=== PATIENT | female | born 1990 | race Hispanic/Latino ===

== ENCOUNTER 2017-08-23 13:41 | Inpatient (IN) | payer OTHER ==
[2017-08-23 14:25] VITALS: BMI 35.7
[2017-08-23] MEDS ORDERED: Ondansetron HCl/PF 4 MG/2 ML Vial IVP PRN ×2 (15:10→17:29)
[2017-08-23] MEDS ORDERED: Promethazine HCl 25 MG/ML VIAL IM PRN ×2 (15:10→17:29)
[2017-08-23] MEDS ORDERED: Lidocaine 1% (PF) 30 ML VIAL SC PRN (15:29)
[2017-08-23] MEDS ORDERED: Ibuprofen 800 MG TAB PO PRN (15:29)
[2017-08-23] MEDS: Lactated Ringer's 1,000 ML IV SCH ×2 (15:33→16:05)
[2017-08-23 15:58] LABS: Hematocrit 32.6 % (36.0-47.0); White Blood Cell (WBC) Count 8.3 thou/uL (4.8-10.8)
[2017-08-23] MEDS ORDERED: Fentanyl 4 mcg/Marc 0.1% Cadd 100 ML ONE (16:11)
[2017-08-23] MEDS: Fentanyl 4mcg/Marcaine 0.1% Cassette 100 ML EPIDURAL SCH ×2 (17:10→22:52)
[2017-08-23] MEDS ORDERED: Eucerin (Mineral Oil/Petrolatum,White) 30 gm Jar TOP PRN (17:29)
[2017-08-23] MEDS ORDERED: diphenhydrAMINE HCl 50 MG/ML 1 ML VIAL IVP PRN (17:29)
[2017-08-23] MEDS ORDERED: Naloxone HCl 0.4 mg/ml Vial IVP PRN ×2 (17:29)
[2017-08-23] MEDS ORDERED: Lactated Ringer's 500 ML IV PRN (17:29)
[2017-08-23] MEDS ORDERED: ePHEDrine/0.9% NaCl/PF SYRINGE 50 mg/10 ml SLOW IVP PRN (17:29)
[2017-08-23] MEDS ORDERED: Communication Order-Pharmacy FS SCH (17:30)
--- NOTE | 2017-08-23 17:55 | PDOC.LDPN ---
Labor & Delivery Progress Note - Subjective Subjective: comfortable - Objective General: NAD, resting Dilation: 4 Effacement: 90% Station: -1 FHT: category 1, variability present [place] contractions every: 3-4 minutes Procedures: AROM AROM: clear fluid IUPC placed: yes - Assessment (1) Desires (vaginal after ) trial Code(s): O34.219 - MATERNAL CARE FOR UNSP TYPE SCAR FROM PREVIOUS DEL Current Visit: Yes Status: Acute Comment: @ 38.0 desires a TOLAC. Her last was at 31 weeks for severe pre-e with a low transverse incision on the uterus. Her initial check was 4/80/-1, she has only progressed to 4//-1 We ruptured her, which returned clear fluid, and placed an IUPC. Will start pitocin for augmentation Continue cervical checks She received an epidural for anaesthesia. Plan: labor augmentation (started pitocin for augmentation)
[2017-08-23] MEDS ORDERED: LR 500 ML/Oxytocin 10 units 500 ML IV SCH (18:00)
[2017-08-23] MEDS: Acetaminophen 325 MG TAB PO PRN (19:14)
--- NOTE | 2017-08-23 20:06 | PDOC.LDPN ---
Labor & Delivery Progress Note - Subjective Subjective: painful contractions - Objective Vital signs reviewed and normal: yes General: breathing through contractions Uterine fundus: non tender SVE: 6/100/0 FHT: category 1 [place] contractions every: 3-6 min Other exam findings: 300 MVUs IUPC placed: yes (replaced IUPC as previously placed one was coiled in vaginal vault) - Assessment (1) Active labor at term Code(s): [id number] - Current Visit: Yes Status: Acute (2) Desires (vaginal after ) trial Code(s): O34.219 - MATERNAL CARE FOR UNSP TYPE SCAR FROM PREVIOUS DEL Current Visit: Yes Status: Acute Comment: @ 38.0 in active labor who desires TOLAC. Her last was at 31 weeks for severe pre-e with a low transverse incision on the uterus. Her initial check was /-1 and was having regular contractions. MFM calc > 50% success Anesthesia- epidural (3) History of delivery Code(s): Z98.891 - HISTORY OF UTERINE SCAR FROM PREVIOUS SURGERY Current Visit : Yes Status: Acute (4) Gestational diabetes, diet controlled Code(s): O24.410 - GESTATIONAL DIABETES MELLITUS IN , DIET CONTROLLED Current Visit: Yes Status: Acute Qualifiers: Trimester: third trimester Qualified Code(s): O24.410 - Gestational diabetes mellitus in , diet controlled Comment: diet controlled. accucheck 88. Plan: continue plan of care -: After replacement of IUPC, will monitor ctx for adequate MVUs. If inadequate, will start pitocin for augmentation of labor.
--- NOTE | 2017-08-23 21:27 | HP ---
TODAY'S DATE: 08/23/2017 TIME: 1510 hours. This is a patient of the Clinic, who is here for suspected labor at term, with a history of a prior at 31 weeks. HISTORY OF PRESENT ILLNESS: In brief, this is a 26-year-old 2, para 1 with a history of a prior x1 with her first due to severe preeclampsia. That was at [facility]. That occurred at 31 weeks. She is followed the Clinic for this care. Dr. Gonzalez was the first physician to assess the patient on arrival and I have evaluated the patient as well. The patient's prior was with Dr. Fonseca on 2014. She presents now with contractions, but denies vaginal bleeding or leakage of fluid. PAST MEDICAL HISTORY: Otherwise, negative except for obesity. PAST SURGICAL HISTORY: Significant for x1. FAMILY HISTORY: Significant for father with hypertension and type 2 diabetes. /OB HISTORY: She is at 30 weeks by ultrasound performed 01/20/2017. ALLERGIES: None. SOCIAL HISTORY: Otherwise negative. REVIEW OF SYSTEMS: Complete review of systems was checked and is otherwise negative unless specified in the HPI. PHYSICAL EXAMINATION: VITAL SIGNS: Blood pressure is 122/87, heart rate 76, respirations are 18 and nonlabored. GENERAL: She is in no acute distress, but she does have some contraction discomfort. ABDOMEN: Soft and nontender. CERVIX: On cervical exam, her cervix is 4 cm dilated, 80% effaced, -1 station. Estimated weight is approximately 7 pounds. Child's presentation is vertex. Contractions are about every 5-8 minutes on tocodynamometer. MONITORING: heart tones are in the 140s with moderate variability and accelerations, the category is 1. ASSESSMENT: This is a 2, para 1, who is at 38 weeks with a prior C- section x1 that was done at [address] Fonseca for severe preeclampsia, she is now here with contractions and early labor at 4 cm. PLAN: 1. The operative note from the is not in the chart, but we have contacted the Clinic and we are waiting to confirm that there was a low transverse section and that she is cleared for trial of labor. 2. She has interdelivery interval of just over 24 months with her last delivery / being 05/23/2015. As the delivery interval is greater than 24 months , and as the patient desires trial of labor after , a trial of labor after can be allowed if the operative note confirms low transverse . 3. Informed consent on including risk of uterine rupture, failure, need for repeat , need for blood transfusion, as well as an option for elective repeat have all been reviewed with her. 4. Anesthesia preop. 5. Type and screen rather than bend and hold. 6. Charge nurse aware of possible trial of labor after if operating report confirms low transverse . ADDENDUM: The operative report has been received at 1519 hours. The operative note states a prior low transverse section was made. The incision was also closed with a double layer closure. This confirms our ability to allow a vaginal after section. I have provided informed consent to her in [place]...forms signed. ELISE
--- NOTE | 2017-08-23 23:22 | PDOC.LDPN ---
Labor & Delivery Progress Note - Subjective Subjective: comfortable, vaginal pressure - Objective Vital signs reviewed and normal: yes General: NAD, resting, breathing through contractions Uterine fundus: non tender Dilation: 9.5 Effacement: 100% Station: 0 FHT: category 1, variability present [place] contractions every: 2-3 AROM: clear fluid IUPC placed: yes - Assessment (1) Desires (vaginal after ) trial Code(s): O34.219 - MATERNAL CARE FOR UNSP TYPE SCAR FROM PREVIOUS DEL Current Visit: Yes Status: Acute Comment: @ 38.0 in active labor who desires TOLAC. Her last was at 31 weeks for severe pre-e with a low transverse incision on the uterus. Her most recent check 9.5/100/0 and was having regular contractions. Anesthesia- epidural continue current plan check again in 2 hours (2) Gestational diabetes, diet controlled Code(s): O24.410 - GESTATIONAL DIABETES MELLITUS IN , DIET CONTROLLED Current Visit: Yes Status: Acute Qualifiers: Trimester: third trimester Qualified Code(s): O24.410 - Gestational diabetes mellitus in , diet controlled Comment: diet controlled. accucheck 88. Plan: continue plan of care
[2017-08-24] MEDS: Acetaminophen 325 MG TAB PO PRN (01:42)
[2017-08-24] MEDS: Lactated Ringer's 1,000 ML IV SCH (01:52)
[2017-08-24] MEDS ORDERED: Misoprostol 200 MCG TAB ONE (04:09)
[2017-08-24] MEDS ORDERED: Misoprostol 200 MCG TAB VAG SCH (04:15)
[2017-08-24] MEDS: LR / Pitocin 40 units/1000 ml 1,000 ML IV PRN ×2 (04:41→06:56)
[2017-08-24 04:48] LABS: CO2 Tension (PaCO2) 54.2 mmHg (44.0-56.0)
--- NOTE | 2017-08-24 04:55 | PRG ---
DATE OF SERVICE: 08/24/2017 TIME OF EVALUATION: 0345 SECOND STAGE OF LABOR NOTE In brief, this is a patient who was undergoing a trial of labor after section. She has pro gressed spontaneously without the use of Pitocin. She was first called complete at approximately 23 45. The current time again is about 0350. We are approaching 4 hours of second stage. However, af ter bedside evaluation and after discussion with the patient's nurse, who has been at bedside, this has been mainly passive descent. The patient began actively pushing approximately 1 hour ago. She is a functional primigravida as her first was done without labor at approximately 31 weeks . PHYSICAL EXAMINATION: On physical exam, her cervix is complete, complete, +2 while pushing. External monitor shows heart tones with moderate variability and accelerations. There i s scalp acceleration with scalp stimulation. Contractions are about every 5 minutes or so, ag ain spontaneously without Pitocin. ASSESSMENT: 1. This patient is undergoing a trial of labor after section with a protracted second stag e, delayed/passive pushing. The patient has been pushing for approximately 1 hour. I examined the patient and found the child to be in OA position. Estimated weight once again is approximatel y 7 pounds (nonmacrosomic). Pelvis once again appears gynecoid. Although we are approaching 4 hour s, this has been mainly passive descent. As the heart rate tracing is within normal limits, a s her maternal temperature is normal, we have decided to allow an additional 30 minutes. If deliver y has not occurred by roughly 0430, we may proceed with a repeat for failure to descend at second stage. If the skull is at greater than or equal to +2, we may attempt a trial of oper ative vaginal . 2. Whether we pursue a vaginal or section we will have Hemabate 1000 mcg at bedside for prevention of hemorrhage.
--- NOTE | 2017-08-24 05:36 | DN ---
DATE OF PROCEDURE: 08/24/2017 TIME OF INTERVENTION: 0422 (time of delivery). DELIVERY DICTATION/FACULTY NOTE In brief, I was present and assisted Dr. Eneida Wiseman and Dr. Parth Lara who were the residents director telecommunications, with a successful vaginal after section. PREOPERATIVE DIAGNOSES: 1. Prior undergoing a trial of labor after . 2. Protracted second stage (4 hours total). PROCEDURE: 1. Successful vaginal after section. 2. Repair of spontaneous third degree laceration and left first degree periurethral laceration. DELIVERY PHYSICIAN: Dr. Eneida Wiseman/Parth Lara. FACULTY/STAFF: Dr. Sonido Dial (present and assisted). ESTIMATED BLOOD LOSS: Less than or equal to 600 mL. COMPLICATIONS: Third degree (50%, partial) external anal sphincter laceration. FINDINGS: 1. male with Apgars 8 and 9. 2. Third degree partial external anal sphincter laceration noted. 3. Intact placenta with 3-vessel cord. SPECIMENS SENT: 1. Cord gas. 2. Placenta not sent to pathology as there was no clinical evidence of intra- amniotic infection. TECHNIQUE: In brief, after a protracted second stage of labor (passive descent and active pushing) the patient progressed to a spontaneous vaginal after section. A third degree laceration was noted (50%). This was a stage 3B (more than 50% external anal sphincter thickness torn). There was no involvement of the rectal mucosa. The child was in an OA position without evidence of shoulder dystocia. The baby was born at 0422 was placental delivery at 0431. Repair of the lacerations was by Dr. Wiseman under my supervision. No complications were noted. The patient seemed to tolerate the procedure well. Anesthesia was labor epidural. An episiotomy was not performed , this was a spontaneous laceration. we will begin Colace/stool softeners for the obstetrical anal sphincter laceration. Information was given to the patient regarding this finding. ADDENDUM: In brief, this patient sustained a third degree obstetrical anal sphincter injury. According to the ACOG, wound infection complication rates are decreased when intrapartum antibiotics are administered. Data suggests that antibiotics given at time of repair of an obstetrical anal sphincter injury, significantly lower rates the wound complications existed. Therefore , I have ordered 2 grams Ancef to be given during this repair. MTDD
--- NOTE | 2017-08-24 05:39 | PDOC.OPDEL ---
OB Operative/Delivery Note Delivery Dr/Surgeon: Parth Lara DO, Eneida Dumont DO, Sonido Dial MD Pre-Delivery Diagnosis: elective induction Procedure/Post Delivery Dx: spontaneous vaginal delivery Weeks gestation: 38 Anesthesia: epidural - Additional Findings/Plan Placenta delivered: spontaneous Repaired Obstetrical Laceration: 3rd degree (also left periurethral) Estimated blood loss: 600 Post delivery plan: routine recovery
[2017-08-24] MEDS ORDERED: Preparation H Ointment 28 GM TUBE PR PRN (07:59)
[2017-08-24] MEDS ORDERED: traMADol HCl 50 MG TAB PO PRN (07:59)
[2017-08-24] MEDS ORDERED: Adacel (T-DAP) 0.5 ML VIAL IM ONE (07:59)
[2017-08-24] MEDS ORDERED: Lanolin Ointment 7 GM TUBE TOP PRN (07:59)
[2017-08-24] MEDS ORDERED: Bisacodyl 10 MG SUPP PR PRN (07:59)
[2017-08-24] MEDS ORDERED: diphenhydrAMINE HCl 25 MG CAP PO PRN (07:59)
[2017-08-24] MEDS ORDERED: LR / Pitocin 40 units/1000 ml 1,000 ML IV SCH (07:59)
[2017-08-24] MEDS ORDERED: Benzocaine/Menthol 20-0.5% 60 ML CAN TOP PRN (07:59)
[2017-08-24] MEDS: Prenatal Vitamin 1 TAB PO SCH (09:15)
[2017-08-24] MEDS: Docusate (Surfak) 240 MG CAP PO SCH ×2 (09:15→21:29)
[2017-08-24] MEDS: Ibuprofen 800 MG TAB PO SCH ×3 (09:58→21:29)
[2017-08-24] MEDS: Ferrous Sulfate 325 MG TAB PO SCH ×2 (09:58→17:59)
[2017-08-24] MEDS: Milk Of Magnesia 30 ML UDCUP PO PRN (12:43)
[2017-08-24] MEDS ORDERED: Bupivacaine 0.25% HCL 30 ML VIAL ONE (20:37)
[2017-08-25 04:57] LABS: Hematocrit 25.8 % (36.0-47.0); Red Blood Cell (RBC) Count 2.81 mill/uL (4.20-5.40); White Blood Cell (WBC) Count 11.1 thou/uL (4.8-10.8)
--- NOTE | 2017-08-25 07:59 | PDOC.PP ---
Post Progress Note Post Day #: 1 PO intake tolerated: yes Flatus: yes Ambulation: yes Vital Signs (12 hours) Temp Pulse Resp BP 08/25/17 04:00 98.8 F 83 20 110/57 L 08/25/17 00:30 99.1 F 92 20 114/67 08/24/17 20:10 98.9 F 84 20 135/62 Weight Weight 77.564 kg - Physical Examination General: NAD Cardiovascular: no m/r/g, RRR Respiratory: clear to ausculation bilateral Abdominal: + bowel sounds, lochia (rubra, minimal), no distention, appropriately TTP Fundus firm & at: below umbilicus Extremities: negative homans (B) Skin: no rash Neurological: no gross focal deficits Psychiatric: normal affect Result Diagrams: 08/25/17 04:37 Additional Labs: Post Labs Blood Type O POSITIVE 08/23/17 15:51 Hep Bs Antigen Non-Reactive S/CO (NonReactive) 08/23/17 15:51 (1) , delivered, current hospitalization Code(s): O34.219 - MATERNAL CARE FOR UNSP TYPE SCAR FROM PREVIOUS DEL Status: Acute Comment: 27 yo ->2 delivered @ 38.1wk via successful @ 0422 on 08/25/17. Doing well . Denies any concerns at this time. Anemia after EBL >600ml. On iron therapy. 3rd degree lac s/p repair- on stool softeners. no BM yet but feeling well. (2) Third degree laceration of perineum, type 3B Code(s): O70.22 - THIRD DEGREE PERINEAL LACERATION DURING DELIVERY, IIIB Status: Acute - Assessment/Plan Stable for discharge this afternoon or tomorrow am.
[2017-08-25] MEDS: Ferrous Sulfate 325 MG TAB PO SCH ×2 (08:14→18:02)
[2017-08-25] MEDS: Ibuprofen 800 MG TAB PO SCH ×3 (08:14→20:55)
[2017-08-25] MEDS: Prenatal Vitamin 1 TAB PO SCH (08:14)
[2017-08-25] MEDS: Docusate (Surfak) 240 MG CAP PO SCH ×2 (08:14→20:55)
--- NOTE | 2017-08-25 08:20 | DIS ---
DATE OF ADMISSION: 08/23/2017 DATE OF DISCHARGE: 08/25/2017 ADMISSION DIAGNOSES: Term intrauterine , desiring trial of labor after section, p resents in early active labor at 4 cm. DISCHARGE DIAGNOSES: 1. Status post successful vaginal after section complicated by third degree vaginal laceration and hemorrhage of 600 mL. 2. Uncomplicated course. HOSPITAL COURSE: The patient is doing well this morning. , normal lochia. She states that she has had a bowel movement and voided without difficulty. She is having adequate pain contr ol. The patient thinks she might like to go home today if the baby is going to be discharged. OBJECTIVE: VITAL SIGNS: Temperature 98.8, pulse 83, respiratory rate 20, blood pressure 110/57. GENERAL: Nontoxic appearing female in no acute distress. ABDOMEN: Soft, nontender, nondistended, no rebound, no guarding. GENITOURINARY: Fundus is firm and below the umbilicus and nontender. ASSESSMENT AND PLAN: day #1 status post successful vaginal after sectio n. The patient is doing well. We will check back with her later to see if she is ready for dischar ge. If so, will discharged home with stool softener given her third degree laceration. The patient should follow up with her primary obstetric provider.
[2017-08-25] MEDS: Milk Of Magnesia 30 ML UDCUP PO PRN (09:37)
[2017-08-26] MEDS: Ibuprofen 800 MG TAB PO SCH (05:03)
--- NOTE | 2017-08-26 06:55 | PDOC.PP ---
Post Progress Note Post Day #: 2 PO intake tolerated: yes Flatus: yes Ambulation: yes Vital Signs (12 hours) Temp Pulse Resp BP Pulse Ox 08/25/17 20:00 98.7 F 97 18 134/75 97 Weight Weight 77.564 kg - Physical Examination General: NAD Cardiovascular: no m/r/g, RRR Respiratory: clear to ausculation bilateral Abdominal: + bowel sounds, lochia (minimal lochia rubra), no distention, appropriately TTP Fundus firm & at: umbilicus Extremities: negative homans (B) Skin: no rash Neurological: no gross focal deficits Psychiatric: normal affect Result Diagrams: 08/25/17 04:37 Additional Labs: Post Labs Blood Type O POSITIVE 08/23/17 15:51 Hep Bs Antigen Non-Reactive S/CO (NonReactive) 08/23/17 15:51 (1) , delivered, current hospitalization Code(s): O34.219 - MATERNAL CARE FOR UNSP TYPE SCAR FROM PREVIOUS DEL Status: Acute Comment: 27 yo ->2 delivered @ 38.1wk via successful @ 0422 on 08/25/17. PPD #2- Doing well . Denies any concerns at this time. Anemia after EBL >600ml. On iron therapy. 3rd degree lac s/p repair- on stool softeners. Stable for discharge home this morning with baby and follow up at clinic. (2) Third degree laceration of perineum, type 3B Code(s): O70.22 - THIRD DEGREE PERINEAL LACERATION DURING DELIVERY, IIIB Status: Acute
[2017-08-26] MEDS: Ferrous Sulfate 325 MG TAB PO SCH (08:36)
[2017-08-26] MEDS: Docusate (Surfak) 240 MG CAP PO SCH (08:37)
[2017-08-26] MEDS: Prenatal Vitamin 1 TAB PO SCH (08:37)
[2017-08-26 08:50] VITALS: BP 118/75; TEMP 97.2
--- NOTE | 2017-08-26 10:49 | DIS ---
DATE OF ADMISSION: 08/23/2017 DATE OF DISCHARGE: 08/26/2017 PRINCIPAL PROCEDURE: 1. Successful vaginal after . 2. Trial of labor after . This is a patient of the Clinic with Dr. Eneida Dumont (resident) following the patient. HISTORY OF PRESENT ILLNESS: In brief, this is a patient that was admitted on 08/23/2017 with me construction quality control manager. This patient was a prior at 31 weeks who was cleared for a trial of labor after ela arean section. She desired a trial of labor after after informed consent. Patient progre ssed throughout her labor course and proceeded to have a vaginal . The patient did sustain a p artial third-degree laceration, which was repaired under my supervision with residents construction quality control manager. She did well in her course. She remained afebrile and normotensive throughout her postpartu m stay. I evaluated the patient on 08/26/2017 at 09:13 a.m. and found her to be afebrile without ev idence of acute maternal complication. T-max was 99.1 on 08/25/2017 at midnight, but no true temper ature was noted. Pulse was in the 80s-90s. Blood pressures ranged from 118/75-111/57. On laborato ry assessment, her hematocrit value was 25.8 down from an original value of 32.6. HIV, h epatitis and syphilis serologies were all negative on admission. On physical exam, there was no evidence of enteritis or abnormal vaginal bleeding. Decision was mad e to send her home with continued Colace, stool softener for her third degree laceration. She will follow up with Dr. Dumont at the Clinic. Prescriptions were given by Dr. Dumont for Motrin and Surfak/Colace.
== END 2017-08-26 11:40 | disposition home or self-care (01) | DRG 775 ==
LOC: L&D/OP 13:41 → L&D 16:12 → 3SW 08-24 07:45
PROVIDERS: ADMIT Obstetrics & Gynecology; ATTEND Obstetrics & Gynecology
PROC: 10E0XZZ Delivery of Products of Conception, External Approach (ICD-10-PCS; principal; 2017-08-24)
DX: O34.211 Maternal care for low transverse scar from previous cesarean delivery (principal); O24.420 Gestational diabetes mellitus in childbirth, diet controlled; N85.8 Other specified noninflammatory disorders of uterus; O70.22 Third degree perineal laceration during delivery, IIIb; Z37.0 Single live birth; O71.82 Other specified trauma to perineum and vulva; Z3A.38 38 weeks gestation of pregnancy
CPT/HCPCS: 36415; 36416; 82805; 85027; 86780; 86850; 86900; 86901; 87340; 87389; J2405; S0020